=== PATIENT | male | born 1990 | race Caucasian/White ===

== ENCOUNTER 2024-05-21 13:16 | Emergency (ER) | payer MEDICAID, SELFPAY ==
[2024-05-21 13:16] VITALS: BP 133/85; PULSE 99; RESP 16; TEMP 36.2; O2SAT 94; BMI 39.0
--- NOTE | 2024-05-21 13:39 | EX.ED.DYSGE1 ---
HPI History of Present Illness Chief Complaint: Headache Narrative Narrative: Patient is a 33-year-old male past medical history of migraine headaches who presents to the emergency department the chief complaint of migraine headache. He states that approximately 4 days ago he woke up and noted that he had a migraine headache that progressively worsened throughout the day and over the last several days. He states that he tried to take his sumatriptan that has been prescribed to him as well as some Excedrin he states that this provided some relief however he states that the headache has been persistent and rates his pain a 7 out of 10 prompting him to come here for further evaluation management. Patient is also complaining of a mild sore throat here in the emergency department. He states that prior to all his symptoms started he noted that he had been ill with a viral bug that caused him abdominal pain nausea vomiting diarrhea. PFSH PFSH Medical History no medical history Allergy/AdvReac Type Severity Reaction Status Date / Time morphine AdvReac Intermediate Other Verified 05/21/24 13:19 Social History Smoking Status: Never smoker ROS ROS ED ROS Narrative Constitutional: Complains of headache as noted above denies any fevers, chills, lightheadedness, dizziness Eyes: Denies change in vision double vision Cardiovascular: Denies chest pain or palpitations Respiratory: Denies cough wheezing shortness of breath Abdomen: Denies abdominal pain nausea vomiting diarrhea currently but did have it as noted above in HPI : Denies pain phonation, hematuria or polyuria Neurological: Denies numbness, weakness, tingling Musculoskeletal: Denies back pain Skin: Denies rashes or lesions EXAM Physical Exam Narrative Exam Narrative: General: Patient lying in bed rest comfortably did not appear to be in acute distress Head: Atraumatic, normocephalic Eyes: PERRL bilaterally, EOMI bilaterally, no conjunctival injection noted Ears, nose, throat: Mucous membranes moist, mild posterior pharynx erythema noted bilateral tonsillar enlargement uvula midline no concern for peritonsillar abscess, no sublingual swelling Neck: Soft, supple, trachea midline, no tenderness palpation midline cervical spine, patient has full range of motion of his neck. No concern for meningitis Cardiovascular: Regular rate and rhythm no murmurs gallops rubs noted Respiratory: Clear to auscultation bilaterally Abdomen: No tenderness palpation Extremities: +5/5 strength noted in the bilateral upper and lower extremities, no pedal edema neuroexam Neurological: Patient following commands that he is at [facility] the year is 2023. Patient completed finger-nose test bilaterally without difficulty. NIH of 0 GCS 15 Skin: Warm, dry, intact, no rashes or lesions noted Const Vital Signs: 05/21/24 13:16 Temperature 97.1 F L Temperature Source Temporal Pulse Rate 99 Respiratory Rate 16 Blood Pressure 133/85 H Blood Pressure Mean 101 Pulse Ox 94 Oxygen Delivery Method Room Air MDM MDM MDM Narrative Medical decision making narrative: Patient is a 33-year-old male who presented to the emergency department the chief complaint of headache. Patient will have a workup performed here on the differential diagnosis includes but not limited to tension headache, migraine headache, strep throat, dehydration. Once workup is obtained reviewed he will be reevaluated. Patient be given IV fluids, Reglan, Toradol, Benadryl. Patient strep test negative. On reevaluation of the patient and he states that he feels significantly improved and would like to go home at this point time. He was encouraged to follow-up with his primary care physician in the outpatient setting. He is encouraged to return with worsening symptoms or other concerns. All questions and concerns answered he is discharged home in stable condition. Discharge Plan Triage Chief Complaint: Headache ED Provider: [place] Dx/Rx/DC Orders Clinical Impression: Migraine Primary Care Provider: NOT,DEFINED Referrals: NOT,DEFINED [Primary Care Provider] - Timbo King MD [Med Staff - Active Staff] - Print Language: Wolof Disposition Disposition: Home, Self Care
[2024-05-21] MEDS: Metoclopramide 10 MG/2 ML Vial IV (13:47)
[2024-05-21] MEDS: 0.9% Normal Saline (1000mL) 1,000 ML 999 ML IV (13:47)
[2024-05-21] MEDS: Ketorolac 30 MG/ML Syringe IV (13:48)
[2024-05-21] MEDS: DiphenhydrAMINE 50 MG/ML Syringe 25 MG IV (13:54)
[2024-05-21 15:07] VITALS: BP 107/62; PULSE 76; RESP 15; TEMP 36.1; O2SAT 100
== END 2024-05-21 15:08 | disposition home or self-care (01) ==
PROVIDERS: Emergency Provider Emergency Medicine; Visit Provider Emergency Medicine
DX: G43.909 Migraine, unspecified, not intractable, without status migrainosus (principal); J02.9 Acute pharyngitis, unspecified
CPT/HCPCS: 87651; 99283; J7030

== ENCOUNTER 2024-10-04 06:12 | Emergency (ER) | payer MEDICAID, SELFPAY ==
[2024-10-04 06:13] VITALS: BP 133/94; PULSE 82; RESP 16; TEMP 36.2; O2SAT 98; BMI 39.9
[2024-10-04] MEDS: Ondansetron ODT 4 MG Tablet PO (06:34)
[2024-10-04] MEDS: Lidocaine 2% Viscous15 ML UDC 15 ML PO (06:35)
[2024-10-04] MEDS: Mag Hydrox/Al Hydrox/Simeth 30 ML UDC PO (06:35)
--- NOTE | 2024-10-04 06:42 | RAD_ITS ---
EXAM: XR SOFT TISSUE NECK CLINICAL INDICATION: SORE THROAT TECHNIQUE: Frontal and lateral views of the soft tissues of the neck. COMPARISON: No relevant prior studies available. FINDINGS: AIRWAY: Unremarkable. Grossly patent. SOFT TISSUES: Unremarkable. No radiopaque foreign body. No pathologic thickening or enlargement of the epiglottis. RAD/Neck for Soft Tissue IMPRESSION: Negative neck x-rays. Electronically Signed: Pradeep Santoro MD at 7:33 EST ,
--- NOTE | 2024-10-04 07:00 | EX.ED.DYSGE1 ---
HPI History of Present Illness Chief Complaint: General Illness Informant: patient and EMS Narrative Narrative: Patient is a 34-year-old male with remote history of asthma. He states he went to bed feeling normal and then awoke this morning and had 3 bouts of vomiting. He states that after doing so he feels like his throat is tight and it is difficult to swallow and breathe. He denies any known sick contacts. He denies any fevers or chills. However with the sudden onset of symptoms he was concerned and EMS was contacted and he was brought in for evaluation. EMS does report that upon arrival he was awake and alert with stable vitals and tolerating his secretions [facility] Home Medications ?Medication ?Instructions ?Recorded ?Last Taken ?Type albuterol sulfate 90 mcg/actuation 2 puff inhalation Q6H PRN PRN 10/04/24 Unknown History aerosol inhaler (Ventolin HFA) wheezing lidocaine HCl 2 % mucosal solution 10 ml mucous membrane 4X/DAY PRN 10/04/24 Unknown Rx (Lidocaine Viscous) pain 7 days #280 mL ondansetron 4 mg disintegrating 4 mg PO TID PRN nausea and 10/04/24 Unknown Rx tablet vomiting #21 tabs prednisolone 15 mg/5 mL oral 45 mg (15 mL) PO DAILY 5 days #75 10/04/24 Unknown Rx solution mL Allergy/AdvReac Type Severity Reaction Status Date / Time morphine AdvReac Intermediate Other Verified 10/04/24 06:17 Social History Smoking Status: Never smoker ROS [facility] ED Constitutional Constitutional ED: Denies chills or fever(s) Eyes Eyes: Denies blurry vision or change in vision ENT ENT ED: Reports sore throat Cardiovascular Cardiovascular: Denies chest pain Respiratory/Chest Respiratory/Chest: Denies cough or dyspnea Gastrointestinal Gastrointestinal: Reports nausea and vomiting; Denies abdominal pain or diarrhea Genitourinary Genitourinary ED: Denies dysuria Musculoskeletal Musculoskeletal: Denies neck pain Integumentary Denies rash Neurologic Neurologic: Denies headache(s) Hematologic/Lymphatic Hematologic/Lymphatic: Denies easy bleeding or easy bruising Allergic/Immunologic Allergic/Immunologic ED: Reports mouth swelling and tongue swelling EXAM Physical Exam Const Vital Signs: 10/04/24 06:13 Temperature 97.2 F L Temperature Source Oral Pulse Rate 82 Respiratory Rate 16 Blood Pressure 133/94 H Blood Pressure Mean 107 Pulse Ox 98 Oxygen Delivery Method Room Air Positive well nourished and well developed General Appearance ED: well developed; Negative for pallor HEENT Reports moist mucous membranes HEENT Narrative: No tongue or lip swelling noted. No oral lesions no airway edema or compromise There is +1 tonsillar pressure few bilaterally with mild erythema. No exudates. No trismus change in voice or difficulty with secretions. No stridor noted. Eyes PERRL and EOMs intact bilaterally General Eye ED: Negative for scleral icterus Neck supple Neck Narrative: No nuchal rigidity or meningeal signs No crepitance palpated No pain with external manipulation of the thyroid cartilage No brawny edema in the submental space to suggest Gaurav's angina Resp normal respiratory effort and clear to auscultation bilaterally Resp Narrative: No nasal flaring retractions tachypnea or accessory muscle use Cardio regular rate and regular rhythm GI non-tender, non-distended and no masses GI Narrative: No voluntary guarding or rigidity or pulsatile mass Bowel sounds are mildly hyperactive Auscultation: hyperactive bowel sounds Palpation: soft Extremity Extremity Narrative: No asymmetric edema no pitting edema negative Homans' sign bilaterally Neuro oriented x3, CN's II-XII intact bilaterally and no sensory deficits noted Sensorium / Orientation: alert Motor Exam: strength 5/5 throughout Psych Mood & Affect: anxious Skin no rashes or lesions noted General Skin Exam: Negative for jaundice or pallor MDM MDM MDM Narrative Medical decision making narrative: Patient arrived to ER with stable vitals. He was tolerating his secretions without difficulty and was not in respiratory distress. By physical exam he does not have a peritonsillar abscess or epiglottitis or Tashia-Trinh tear. He has no signs of Gaurav's angina or angioedema. His abdomen is soft and nonsurgical so I felt no need for abdominal CT. Patient had a strep swab obtained as there was mild tonsil hypertrophy and erythema but this was negative and does correlate with his physical exam. The x-ray revealed no signs of perforation to suggest Tashia-Trinh tear no signs of obstruction or enlargement of the epiglottis. This also correlates with the fact the patient was able to swallow a GI cocktail without difficulty. On reevaluation vitals remained stable and he is in no acute distress tolerating his secretions well without change in voice and therefore I feel that his sensation is related to irritation/inflammation but without signs of acute infection or obstruction or perforation there is no need for further workup and he is otherwise safe for discharge. History & Record Review Discussion w/independent historian: Patient Radiography Diagnostic Testing: Clinical Impression(s) from Imaging Studies Soft Tissue Neck X-Ray 10/04/24 06:42 IMPRESSION: Negative neck x-rays. Electronically Signed: Pradeep Santoro MD at 7:33 EST , Soft tissue neck x-ray as interpreted by the emergency medicine physician reveals no foreign body perforation or enlargement of the epiglottis Discharge Plan Triage Chief Complaint: General Illness ED Provider: Diego Hsu Dx/Rx/DC Orders Clinical Impression: Pharyngitis, Nausea & vomiting Instructions: ED Pharyngitis, Viral, ED Vomiting (Adult) Prescriptions: New prednisolone 15 mg/5 mL solution 45 mg PO DAILY 5 Days Qty: 75 0RF ondansetron 4 mg tablet,disintegrating 4 mg PO TID PRN (Reason: nausea and vomiting) Qty: 21 0RF lidocaine HCl [Lidocaine Viscous] 2 % solution 10 ml mucous membrane 4X/DAY PRN (Reason: pain) 7 Days Qty: 280 0RF No Action albuterol sulfate [Ventolin HFA] 90 mcg/actuation HFA aerosol inhaler 2 puff INHALATION Q6H PRN PRN (Reason: wheezing) Activity Restrictions/Additional Instructions: Please take the prescribed medication as directed to help control your symptoms. It will typically take 2 to 3 days for the inflammation to resolve and your symptoms to improve. If you develop a fever or have any further concerns please return to the ER for repeat evaluation Print Language: Palestinian Disposition Disposition: Home, Self Care
[2024-10-04 07:49] VITALS: BP 122/93; PULSE 78; RESP 16; TEMP 36.6; O2SAT 99
== END 2024-10-04 07:50 | disposition home or self-care (01) ==
PROVIDERS: Emergency Provider Emergency Medicine; Visit Provider Emergency Medicine
DX: J02.9 Acute pharyngitis, unspecified (principal); R11.2 Nausea with vomiting, unspecified
CPT/HCPCS: 70360; 87651; 99284

== ENCOUNTER 2024-12-09 10:28 | Emergency (ER) | payer MEDICAID, SELFPAY ==
[2024-12-09 10:29] VITALS: BP 141/101; PULSE 86; RESP 16; TEMP 36.7; O2SAT 98; BMI 39.9
--- NOTE | 2024-12-09 11:26 | EDS_ITS ---
HPI History of Present Illness Chief Complaint: Allergic Reaction Informant: patient Narrative Narrative: Patient is a 34-year-old male presenting with sensation of throat swelling and concern for allergic reaction. Patient states he gets allergies and will take Benadryl. He was out of Benadryl and took generic loratadine at 2 AM. At some point after that he woke up at night feeling that his throat was smaller and that he was having hard time breathing. He feels that his uvula is swollen. He notes that his tongue started feel swollen. He also states that his vision seems like everything is vibrating. He denies any rash, wheezing, shorteness of breath or wheezing. Denies any itching. Denies prior allergic reaction but notes that a couple months ago seen in the ER for slit of his uvula but that time he had a sore throat and other viral symptoms. PFSH PFSH Home Medications ?Medication ?Instructions ?Recorded ?Last Taken ?Type albuterol sulfate 90 mcg/actuation 2 puff inhalation Q 6H PRN PRN 10/04/24 Unknown History aerosol inhaler (Ventolin HFA) wheezing lidocaine HCl 2 % mucosal solution 10 ml mucous membra ne 4X/DAY PRN 10/04/24 Unknown Rx (Lidocaine Viscous) pain 7 days #280 mL ondansetron 4 mg disintegrating 4 mg PO TID PRN nausea and 10/04/24 Unknown Rx tablet vomiting #21 tabs prednisolone 15 mg/5 mL oral 45 mg (15 mL) PO DAILY 5 days #75 10/04/24 Unknown Rx solution mL diphenhydramine HCl 25 mg capsule 25 - 50 mg (1 - 2 x 25 mg) PO TID 12/09/24 Unknown Rx (Allergy (diphenhydramine)) PRN allergy symptoms #20 c aps prednisone 20 mg tablet 40 mg (2 x 20 mg) PO DAILY # 8 tabs 12/09/24 Unknown Rx Allergy/AdvReac Type Severity Reaction Status Date / Time morphine AdvReac Intermediate Other Verified 12/09/24 10:32 Social History Smoking Status: Never smoker ROS ROS ED Constitutional Constitutional ED: Denies chills or fever(s) Eyes Eyes: Reports change in vision ENT ENT ED: Reports other Details: Sensation of throat swelling ; Denies rhinorrhea or sore throat Cardiovascular Cardiovascular: Denies chest pain Respiratory/Chest Respiratory/Chest: Reports dyspnea; Denies cough Gastrointestinal Gastrointestinal: Denies abdominal pain, nausea or vomiting Integumentary Denies rash Neurologic Neurologic: Denies weakness EXAM Physical Exam Const Vital Signs: 12/09/24 10:29 Temperature 98.1 F Temperature Source Temporal Pulse Rate 86 Respiratory Rate 16 Blood Pressure 141/101 H Blood Pressure Mean 114 Pulse Ox 98 Oxygen Delivery Method Room Air Positive well nourished and well developed General Appearance ED: well developed and NAD HEENT Reports TM's clear and moist mucous membranes HEENT Narrative: Patient has a mildly predominant uvula by do not appreciate any angioedema to it. I am unable to see the tip because it goes below the base of the tongue. Phonation is normal. Oropharynx otherwise is normal-appearing. No injection or erythema of the hard palate. Tongue is normal in size. No angioedema of the lips appreciated. No tonsillar edema or exudate appreciated. Tympanic Membrane ED: Yes TM's clear Eyes PERRL and EOMs intact bilaterally Eyes Narrative: No nystagmus Neck supple Neck Narrative: No stridor. Chest Wall inspection of chest normal and palpation of chest normal Resp normal respiratory effort and clear to auscultation bilaterally Auscultation: Negative for rhonchi, wheezes or diminished lung sounds Cardio regular rate and regular rhythm GI normal to inspection, nondistended, normoactive bowel sounds and non-tender Extremity normal to inspection General Extremety ED: Negative for edema General Extremity: Negative for edema Neuro oriented x3 Sensorium / Orientation: alert Motor Exam: Negative for general weakness Psych mental status grossly normal Skin no rashes or lesions noted Skin Narrative: No urticaria appreciated MDM MDM MDM Narrative Medical decision making narrative: Patient is evaluated for concern of allergic reaction with sensation of throat swelling and having difficulty time breathing. He has a prominent uvula not sure if he has some localized edema of the uvula versus this is his baseline. He denies any gagging sensation. He does not have any objective findings consistent with anaphylaxis or angioedema. He is not on any other medications. I do not think he requires epinephrine or prolonged monitoring. His vital signs are largely normal with respiratory rate of 16 and 98% on room air. He does not have any fever or infectious symptoms. Out of abundance of caution we will treat with Benadryl and a course of prednisone and have him abstain from using loratadine. I did discuss with them that this is a very atypical allergic reaction. Patient is agreeable with this. He is discharged home in stable condition. Given close return precautions. At this time as I am not completely convinced this is a true allergic reaction I do not think he requires an EpiPen. In addition the symptoms objectively are mild and been going on for 9+ hours with no progression. No signs of anaphylaxis. Discharge Plan Triage Chief Complaint: Allergic Reaction ED Provider: Karla Donovan Dx/Rx/DC Orders Clinical Impression: Uvular swelling, Allergic reaction Instructions: ED ADVERSE DRUG REACTION Allergic, ED Uvulitis Prescriptions: New prednisone 20 mg tablet 40 mg PO DAILY Qty: 8 0RF diphenhydramine HCl [Allergy (diphenhydramine)] 25 mg capsule 25 - 50 mg PO TID PRN (Reason: allergy symptoms) Qty: 20 0RF No Action albuterol sulfate [Ventolin HFA] 90 mcg/actuation HFA aerosol inhaler 2 puff INHALATION Q6H PRN PRN (Reason: wheezing) prednisolone 15 mg/5 mL solution 45 mg PO DAILY 5 Days Qty: 75 0RF ondansetron 4 mg tablet,disintegrating 4 mg PO TID PRN (Reason: nausea and vomiting) Qty: 21 0RF lidocaine HCl [Lidocaine Viscous] 2 % solution 10 ml mucous membrane 4X/DAY PRN (Reason: pain) 7 Days Qty: 280 0RF Primary Care Provider: JETT JEAN BAPTISTE Referrals: JETT JEAN BAPTISTE [Other] Activity Restrictions/Additional Instructions: Is not clear if you have swelling of the uvula from an allergic reaction or another cause. Will put you on steroids and Benadryl of an abundance of caution. If you feel your symptoms are worsening progressing please return to the emergency room. Print Language: Serbian Disposition Disposition: Home, Self Care
[2024-12-09] MEDS: DiphenhydrAMINE 25 MG Capsule 50 MG PO (11:33)
[2024-12-09] MEDS: predniSONE 20 MG Tablet 60 MG PO (11:35)
== END 2024-12-09 11:51 | disposition home or self-care (01) ==
PROVIDERS: Emergency Provider Emergency Medicine; Visit Provider Emergency Medicine
DX: R22.9 Localized swelling, mass and lump, unspecified (principal); R06.00 Dyspnea, unspecified; T78.40XA Allergy, unspecified, initial encounter
CPT/HCPCS: 99282

== ENCOUNTER 2025-09-24 12:35 | Emergency (ER) | payer MEDICAID, SELFPAY ==
[2025-09-24 12:36] VITALS: BP 160/97; PULSE 93; RESP 16; TEMP 36.1; O2SAT 97; BMI 38.9
[2025-09-24 12:57] LABS: Hematocrit 46.4 % (40-54); Hemoglobin 14.9 g/dL (13.0-16.5); Immature Granulocytes Count 0.030 X10^3/uL (0.0-0.0); Mean Corp Hgb Conc 32.1 g/dL (32-36); Mean Corpuscular Volume 79.3 fL (80-94); Mean Platelet Vol. 9.6 fl (6.2-12.0); NRBC Flagged by Analyzer 0 % (0-5); Platelet Count 347 K/mm3 (150-450); RBC Distribution Width CV 14.2 % (11.6-14.6); RBC Distribution Width SD 40.7 fl (35.1-43.9); Red Blood Count 5.85 M/mm3 (4.6-6.2); White Blood Count 12.5 K/mm3 (4.4-11.0)
[2025-09-24] MEDS: 0.9% Normal Saline (1000mL) 1,000 ML 999 ML IV (12:59)
--- NOTE | 2025-09-24 13:17 | ED.RN ---
PT TO BE GIVEN IM INJECTION OF BENTYL AND IV TORADOL. PT ADVISED THE SHOT DOES STING. PT REFUSES TO GET OFF PHONE. NURSE PREPARES TO GIVEN SHOT. ADVISES PT SHOT IS COMING. PT JERKS ARM OF NEEDLE CAUSING A NEAR MISS OF A NEEDLE STICK.
[2025-09-24 13:34] LABS: AST(SGOT) 45 U/L (<=37); Alanine Aminotransfer ALT/SGPT 43 U/L (<=46); Albumin, Serum 4.6 g/dL (3.5-5.0); Alkaline Phosphatase 71 U/L (40-129); Anion Gap 20 (5-15); BUN 9 mg/dL (4-19); BUN/Creat Ratio 7.7 RATIO (10-20); Calcium,Total 9.7 mg/dL (7.6-11.0); Carbon Dioxide 19.8 mmol/L (21.0-32.0); Chloride 100 mmol/L (98-108); Estimated Creatinine Clearance 115.77 ml/min (50-250); Globulin 3.7 g/dL (2.2-4.2); Glucose 101 mg/dL (70-99); Lipase 20 U/L (13-75); Potassium 3.1 mmol/L (3.3-5.1)
[2025-09-24 13:42] LABS: Squamous Epithelial Cells - UA 0 SEEN /hpf (0-5)
[2025-09-24 13:44] LABS: Color, Urine Yellow (Yellow); Glucose, Dipstick Normal (Normal); Leukocyte Esterase-Dipstick Negative /ul (Negative); Nitrite-Dipstick Negative (Negative); Occult Blood-Urine 10 /ul (Negative); Protein-Dipstick 30 mg/dl (Negative); Specific Gravity, Urine 1.025 (1.002-1.030)
[2025-09-24 13:45] LABS: Urine Bilirubin Dipstick 1 mg/dL (Negative)
[2025-09-24 13:46] LABS: Ketone-Dipstick 150 mg/dl (Negative)
[2025-09-24 13:52] LABS: Mucous, Urine 1+ /hpf (<or=2+); Red Blood Cells-Urine 0-5 SEEN /hpf (0-5)
[2025-09-24 14:35] VITALS: BP 122/77; PULSE 82; RESP 18; O2SAT 100
[2025-09-24] MEDS: Potassium Chloride Oral Soln 20 MEQ/15 ML UDC 80 MEQ PO (15:31)
[2025-09-24 15:33] VITALS: BP 115/81; PULSE 70; RESP 18; TEMP 37.2; O2SAT 95
--- NOTE | 2025-09-24 15:37 | ED.RN ---
Potassium liquid med sent home with pt per Dr ELY humphrey order. pt instructed on how to take it.
--- NOTE | 2025-09-24 16:28 | EX.ED.DYSGE1 ---
HPI History of Present Illness Chief Complaint: Nausea/Vomiting Narrative Narrative: Pt is a 35-year-old male who is presenting to the ER today with chief complaint of intractable nausea and vomiting since Saturday. Patient states his has been sick as well. Patient does smoke marijuana. Patient used to smoke marijuana much more in the past, now he smokes it occasionally he states. Patient has no significant midepigastric abdominal pain. No lightheaded dizziness. No vertigo, no chest pain or shortness of breath. Patient states he has not been able to keep any liquids in since Saturday, patient's vital signs show no significant abnormalities besides mild hypertension. Patient's lips do look dry. Patient has no nausea medication at home. No sick contacts. No recent traveling. No new antibiotics. Obese, minimal midepigastric tenderness to palpation, REVIEW OF SYSTEMS: Unless otherwise stated in this report the patient's positive and negative responses for review of systems for constitutional, eyes, ENT, cardiovascular, respiratory, gastrointestinal, neurological, , musculoskeletal, and integument systems and related systems to the presenting problem are either stated in the history of present illness or were not pertinent or were negative for the symptoms and/or complaints related to the presenting medical problem. Nurse's notes and vital signs reviewed. The patient is not hypoxic. Vital signs reviewed and patient is not hypoxic. General: The patient appears well and in no apparent distress. Patient is resting comfortably on cart. Not toxic, lethargic, or listless. Poor hygiene. Skin: Warm, dry, no pallor noted. There is no rash noted. Head: Normocephalic, atraumatic Eye: Normal conjunctiva, no drainage, EOMI. PERRL. Ears, Nose, Mouth, and Throat: oral mucosa is moist. Nares patent. Mouth without vesicles. Cardiovascular: Regular Rate and Rhythm, no murmurs, gallops, or rubs Respiratory: Patient is in no distress, no accessory muscle use, lungs are clear to auscultation, no wheezing, rales or rhonchi Back: non-tender, no CVA tenderness bilaterally to percussion. NO CTLS midline or paraspinal tenderness to palpation. GI: Soft, no other tenderness to palpation, no masses appreciated. No rebound, guarding, or rigidity noted. No peritoneal signs, minimal midepigastric tenderness to palpation, no other acute abdominal tenderness to palpation. Musculoskeletal: The patient has full range of motion of all extremities and joints with no difficulty. Patient has no motor, no sensory deficits. Neurological: A&O x4, normal speech, no focal neurological deficits. Psychiatric: [facility] Medical History (Updated 09/24/25 @ 15:[address] Izaiah Naranjo, DO) Smoker Asthma Migraines Home Medications ?Medication ?Instructions ?Recorded ?Last Taken ?Type diphenhydramine HCl 25 mg capsule 25 - 50 mg (1 - 2 x 25 mg) PO TID 12/09/24 Unknown Rx (Allergy (diphenhydramine)) PRN allergy symptoms #20 caps prednisone 20 mg tablet 40 mg (2 x 20 mg) PO DAILY #8 tabs 12/09/24 Unknown Rx ondansetron 4 mg disintegrating 4 mg PO Q8H PRN PRN Nausea #10 tabs 09/24/25 Unknown Rx tablet promethazine 25 mg rectal 25 mg RECTAL Q6H PRN PRN Nausea ##6 09/24/25 Unknown Rx suppository (Promethegan) Allergy/AdvReac Type Severity Reaction Status Date / Time morphine AdvReac Intermediate Other Verified 09/24/25 12:36 Social History (Updated 12/09/24 @ 11:50 by Akila Guo) household members: significant other and children current occupational status: employed Smoking Status: Current some day smoker tobacco type: smokeless tobacco EXAM Physical Exam Const Vital Signs: 09/24/25 12:36 09/24/25 14:35 09/24/25 15:33 Temperature 97 F L 99.0 F Temperature Source Temporal Pulse Rate 93 82 70 Respiratory Rate 16 18 18 Blood Pressure 160/97 H 122/77 H 115/81 H Blood Pressure Mean 118 92 92 Pulse Ox 97 100 95 Oxygen Delivery Method Room Air Room Air MDM MDM MDM Narrative Medical decision making narrative: Patient seen and examined: IV, fluids, Zofran, lab work, urine Differential diagnosis includes but is not limited to: Cyclic nausea and vomiting, dehydration, electrolyte abnormality, gastroenteritis, nausea, vomiting, flulike symptoms Relevant laboratory interpretation: Potassium 3.1 white blood cell count 12.5,,, carbon dioxide 19, creatinine 1.22 Radiological studies: Reevaluation: Patient was asking for abdominal pain and cramping medication, patient was given Toradol and Bentyl. At discharge patient said he was feeling much better, I gave him ice chips. Patient then had additional episodes of nausea and vomiting at discharge. He was given Zofran and Compazine. Education of cyclic nausea vomiting was discussed at bedside and a discharge paper. Patient adamantly denies that he has any type of marijuana abuse that is causing his cyclic nausea and vomiting. Education on potassium 3.1 and replacement was done as well. Patient was sent in a prescription for Zofran and Phenergan suppositories. No questions at discharge. Social barriers to healthcare: There are no food insecurities, there is no issue with transportation, there are no insurance barriers Disposition: Home Lab Data Labs: Laboratory Results - last 24 hr 09/24/25 09/24/25 12:44 13:30 WBC 12.5 H RBC 5.85 Hgb 14.9 Hct 46.4 MCV 79.3 L MCH 25.5 L MCHC 32.1 RDW Std Deviation 40.7 RDW Coeff of Tati 14.2 Plt Count 347 MPV 9.6 Immature Gran % (Auto) 0.200 Neut % (Auto) 75.2 H Lymph % (Auto) 15.8 L Scott % (Auto) 8.2 Eos % (Auto) 0.2 Baso % (Auto) 0.4 Absolute Neuts (auto) 9.4 H Absolute Lymphs (auto) 1.98 Nucleated RBC % 0 Sodium 140 Potassium 3.1 L Chloride 100 Carbon Dioxide 19.8 L Anion Gap 20 H BUN 9 Creatinine 1.22 H Estim Creat Clear Calc 115.77 Est GFR (MDRD) Non-Af 78 BUN/Creatinine Ratio 7.7 L Glucose 101 H Calcium 9.7 Total Bilirubin 1.07 AST 45 H ALT 43 Alkaline Phosphatase 71 Total Protein 8.3 Albumin 4.6 Globulin 3.7 Albumin/Globulin Ratio 1.2 Lipase 20 Urine Color Yellow Urine Clarity Clear Urine pH 6.0 Ur Specific Bradford 1.025 Urine Protein 30 H Urine Glucose (UA) Normal Urine Ketones 150 A* Urine Occult Blood 10 H Urine Nitrite Negative Urine Bilirubin 1 H Urine Urobilinogen 4 H Ur Leukocyte Esterase Negative Urine RBC 0-5 SEEN Urine WBC 0-5 SEEN Ur Squamous Epith Cells 0 SEEN Urine Bacteria 0 SEEN Urine Mucus 1+ Discharge Plan Triage Chief Complaint: Nausea/Vomiting ED Provider: Izaiah Naranjo Dx/Rx/DC Orders Clinical Impression: Nausea & vomiting, Proteinuria, Cannabis use disorder, Dehydration, mild, Acute hypokalemia Instructions: ED Cyclic Vomiting Syndrome, ED Dehydration (Adult), ED Hypokalemia, ED Marijuana Abuse, ED Proteinuria, ED Vomiting (Adult) Prescriptions: New promethazine [Promethegan] 25 mg suppository 25 mg RECTAL Q6H PRN PRN (Reason: Nausea) Qty: 6 0RF ondansetron 4 mg tablet,disintegrating 4 mg PO Q8H PRN PRN (Reason: Nausea) Qty: 10 0RF No Action prednisone 20 mg tablet 40 mg PO DAILY Qty: 8 0RF diphenhydramine HCl [Allergy (diphenhydramine)] 25 mg capsule 25 - 50 mg PO TID PRN (Reason: allergy symptoms) Qty: 20 0RF Primary Care Provider: JETT JEAN BAPTISTE Referrals: JETT JEAN BAPTISTE [Other] Activity Restrictions/Additional Instructions: Increase fluids at home, Gatorade, water, Powerade, electrolyte drinks. Make sure that you drink all of your potassium drink in the next 2 or 3 hours. Use Zofran if needed for nausea or vomiting, use Phenergan suppositories if needed is a second choice for nausea and vomiting. We have discussed cyclic nausea vomiting secondary to marijuana use at bedside and on discharge paperwork. Follow-up with PCP for additional testing as needed. Follow-up next week with your PCP for repeat urine testing to make sure there is no protein in your urine when dehydration resolves Print Language: Korean Disposition Disposition: Home, Self Care Discharge Date/Time: 09/24/25 15:48
== END 2025-09-24 15:48 | disposition home or self-care (01) ==
PROVIDERS: Emergency Provider Emergency Medicine; Visit Provider Emergency Medicine
DX: R11.2 Nausea with vomiting, unspecified (principal); E87.6 Hypokalemia; E66.9 Obesity, unspecified; R80.9 Proteinuria, unspecified; F12.90 Cannabis use, unspecified, uncomplicated; E86.0 Dehydration; F17.220 Nicotine dependence, chewing tobacco, uncomplicated
CPT/HCPCS: 80053; 81001; 83690; 85025; 96361; 96372; 96374; 96375; 96376; 99283; A4216; J2405